=== PATIENT | female | born 1940 | race Two or more races ===

== ENCOUNTER 2018-08-01 01:41 | Emergency (ER) | payer MEDICARE, MEDICAID ==
[~2018-08-01] VITALS: Ht 152.4 cm; Wt 45.4 kg
[~2018-08-01 01:41] MED LIST: ALPRAZOLAM0.5 MG PO; CARAFATE1 G1 ORAL; DEXILANT60 MG ORAL; IBUPROFEN600 MG ORAL; LEXAPRO10 MG ORAL; METOPROLOL TART25 MG ORAL; NEXIUM40 MG ORAL; RANITIDINE HCL150 MG PO; SIMVASTATIN20 MG ORAL; ZANTAC150 MG ORAL
--- NOTE | 2018-08-01 01:50 | NUR ---
ED Nurse Note: Pt c/o neck pain while sleeping 1 hour ago. Pt is AO x 4times, VSS, on room air no distress. ERMD seen Pt at bedside.
--- NOTE | 2018-08-01 01:50 | NUR ---
ED Nurse Note: PT BROUGHT BY WING DUE TO NECK PAIN
[2018-08-01 01:55] VITALS: BP 144/74
[2018-08-01 01:57] VITALS: BP 144/74
--- NOTE | 2018-08-01 01:57 | NUR ---
MARIA ISABEL: SEE AMA FORM PT REFUSED TO BE TREATED HERE WISHES TO GO TO [facility], ASAEL SPOKE TO PT PT STILL REFUSES TO STAY, PT WAS CALLED [facility], AMA FORMED SIGNED
--- NOTE | 2018-08-01 01:57 | Emergency Room Report ---
History of Present Illness General Chief Complaint: Neck Pain Source: Patient, EMS Present Illness HPI Patient presents with complaints of neck pain Reports that he woke up out of sleep Denies any chest pain Denies any back or flank pain However she has had previous back problems Denies any vomiting or diarrhea denies any fevers Denies any photophobia The history of the present illness is somewhat limited as the patient essentially requesting to be let go in order to be able to go to [facility] Patient reports that she goes there for her usual care Allergies: Coded Allergies: No Known Allergies (Unverified , 02/14/13) Patient History Past Medical History: see triage record Pertinent Family History: none Now: No Reviewed Nursing Documentation: PMH: Agreed; PSxH: Agreed Nursing Documentation-PMH Hx Cardiac Problems: Yes Hx Hypertension: Yes Hx Cancer: No Hx Gastrointestinal Problems: Yes Hx Neurological Problems: No Review of Systems All Other Systems: negative except mentioned in HPI Physical Exam Vital Signs Date Time Temp Pulse Resp B/P (MAP) Pulse Ox O2 Delivery O2 Flow Rate FiO2 08/01/18 01:42 97.0 98 18 144/74 97 Room Air Sp02 EP Interpretation: reviewed, normal General Appearance: no apparent distress Head: normocephalic, atraumatic Eyes: bilateral eye PERRL, bilateral eye EOMI ENT: normal pharynx Neck: supple, other - Subjectively points to the mid cervical region posteriorly, worse with flexion and extension Respiratory: crackles - Bilateral lower lobe Cardiovascular #1: regular rate, rhythm Gastrointestinal: non tender, soft Musculoskeletal: normal inspection Neurologic: alert, oriented x3, responsive Psychiatric: mood/affect normal Skin: no rash Lymphatic: no adenopathy Medical Decision Making Diagnostic Impression: Primary Impression: Neck pain ER Course Patient present with complaints of neck pain also reports previous history of arthritis Denies any acute trauma Patient was concerned about her blood pressure and heart rate upon initial evaluation blood pressure 144/78 Given the age complaint and presentation patient requires further sensitive workup and evaluation Differentials such as cardiac, vascular, neurological, neurosurgical pathology entertained Patient refuses any further care reports that she receives her usual care at [facility] and without to be let go and notes a follow-up there. Patient is awake alert. Has appropriate decision making capacity I spoke to her in Farsi she understands that leaving at this time can lead to worsening symptoms and leaving against medical advice Last Vital Signs Date Time Temp Pulse Resp B/P (MAP) Pulse Ox O2 Delivery O2 Flow Rate FiO2 08/01/18 01:42 97.0 98 18 144/74 97 Room Air Status: unchanged Disposition: AGAINST MEDICAL ADVICE Condition: Unknown Additional Instructions: Please return if you change your mind regarding examination and evaluation here Shelbi Hilario DO Aug 01, 2018 01:57
== END 2018-08-01 02:00 | disposition left against medical advice (07) ==
LOC: EDBD 01:41 → EDUNIT# 01:41 → EMR 01:54
DX: M54.2 Cervicalgia (principal); I10 Essential (primary) hypertension
CPT/HCPCS: 99283